=== PATIENT | female | born 1995 | race Caucasian/White ===

== ENCOUNTER 2017-07-20 08:50 | Outpatient (CLI) | payer BC ==
[2017-07-20 09:03] VITALS: BP 116/58
== END 2017-07-20 12:25 | disposition home or self-care (01) ==
LOC: LDOP 08:50
PROVIDERS: ATTEND Student in an Organized Health Care Education/Training Program
DX: O26.893 Other specified pregnancy related conditions, third trimester (principal); O62.9 Abnormality of forces of labor, unspecified; R10.9 Unspecified abdominal pain; Z3A.39 39 weeks gestation of pregnancy
CPT/HCPCS: 59025; 99211; G0463

== ENCOUNTER 2017-07-20 19:40 | Inpatient (IN) | payer BC ==
[~2017-07-20] VITALS: Ht 162.6 cm; Wt 98.0 kg
[2017-07-20] MEDS ORDERED: LACTATED RINGERS 1,000 ML IV SCH (20:10)
[2017-07-20] MEDS ORDERED: OXYTOCIN 30U/ 0.9% NaCL 500ML 500 ML IV ONE (20:10)
[2017-07-20] MEDS ORDERED: D5%-LACTATED RINGERS 1,000 ML IV SCH (20:10)
[2017-07-20] MEDS ORDERED: NEWBORN KIT ONE (20:25)
[2017-07-20] MEDS ORDERED: OXYTOCIN 30U/ 0.9% NaCL 500ML 500 ML ONE (20:25)
[2017-07-20] MEDS ORDERED: MISOPROSTOL 200 MCG TABLET ONE (20:26)
[2017-07-20] MEDS ORDERED: LIDOCAINE 1%, 20ML ONE (20:26)
[2017-07-20] MEDS ORDERED: ONDANSETRON 2MG/ML, 2ML IVPush PRN (20:30)
[2017-07-20] MEDS ORDERED: CALCIUM CARBONATE 500 MG TAB.CHEW PO PRN (20:30)
[2017-07-20] MEDS ORDERED: FENTANYL PF 100 MCG/2ML IV PRN (20:30)
[2017-07-20] MEDS: PLEASE ENTER HEIGHT AND WEIGHT MC SCH (20:30)
[2017-07-20] MEDS ORDERED: TERBUTALINE 1 MG/ML, 1ML IVPush PRN (20:30)
[2017-07-20] MEDS ORDERED: FENTANYL PF 100 MCG/2ML ONE ×2 (20:30→22:54)
[2017-07-20] MEDS: FENTANYL PF 100 MCG/2ML IVPush PRN ×2 (20:31→22:56)
[2017-07-20 20:41] LABS: HEMATOCRIT 30.7 % (34.6-47.8); WHITE BLOOD COUNT 6.5 x10^3/uL (4.5-13.2)
[2017-07-21] MEDS ORDERED: FENTANYL PF 100 MCG/2ML ONE ×2 (00:10→02:22)
[2017-07-21] MEDS: FENTANYL PF 100 MCG/2ML IVPush PRN ×2 (00:13→02:24)
[2017-07-21] MEDS ORDERED: OXYTOCIN 30U/ 0.9% NaCL 500ML 500 ML ONE (02:22)
[2017-07-21] MEDS ORDERED: ONDANSETRON 2MG/ML, 2ML IV PRN (03:00)
[2017-07-21] MEDS ORDERED: HYDROcodone/APAP 10/325 MG TABLET PO PRN (03:00)
[2017-07-21] MEDS ORDERED: MISOPROSTOL 200 MCG TABLET PR PRN (03:00)
[2017-07-21] MEDS ORDERED: BISACODYL 10 MG SUPP PR PRN (03:00)
[2017-07-21] MEDS ORDERED: CARBOPROST TROMETHAMINE 250 MCG/ML, 1ML IM PRN (03:00)
[2017-07-21] MEDS ORDERED: METHYLERGONOVINE 0.2 MG/ML IM PRN (03:00)
[2017-07-21] MEDS ORDERED: ACETAMINOPHEN 325 MG TABLET PO PRN ×2 (03:00)
[2017-07-21] MEDS ORDERED: CALCIUM CARBONATE 500 MG TAB.CHEW PO PRN (03:00)
[2017-07-21] MEDS ORDERED: MAGNESIUM HYDROXIDE 8%, 30ML UDC PO PRN (03:00)
[2017-07-21] MEDS ORDERED: METOCLOPRAMIDE 5 MG/ML, 2ML IV PRN (03:00)
[2017-07-21] MEDS ORDERED: MEASLES,MUMPS&RUBELLA VACC/PF 0.5 ML SQ PRN (03:00)
[2017-07-21] MEDS ORDERED: GLYCERIN ADULT SUPP PR PRN (03:00)
[2017-07-21] MEDS ORDERED: DIPH,PERTUSS(ACELL),TET VAC/PF NC IM-VACC PRN (03:00)
[2017-07-21] MEDS ORDERED: RHOGAM FROM BLOOD BANK 1 NOTE EA IM/IV ONE (03:00)
[2017-07-21] MEDS: OXYTOCIN 30U/ 0.9% NaCL 500ML 500 ML IV SCH ×3 (03:10→22:59)
[2017-07-21] MEDS: LACTATED RINGERS 1,000 ML IV SCH ×3 (03:12→23:30)
[2017-07-21] MEDS ORDERED: OXYcodone/APAP 5/325MG TABLET ONE (03:33)
[2017-07-21] MEDS ORDERED: IBUPROFEN 600 MG TABLET ONE (03:33)
[2017-07-21] MEDS: IBUPROFEN 600 MG TABLET PO PRN ×2 (03:35→20:06)
[2017-07-21] MEDS ORDERED: HYDROcodone/APAP 5/325 TABLET ONE (03:48)
[2017-07-21] MEDS: HYDROcodone/APAP 5/325 TABLET PO PRN ×3 (03:51→20:06)
[2017-07-21] MEDS: PLEASE ENTER HEIGHT AND WEIGHT MC SCH ×3 (04:30→20:30)
[2017-07-21 04:45] VITALS: BP 129/83
[2017-07-21 07:40] VITALS: BP 109/60
[2017-07-21] MEDS: PRENATAL VIT/IRON/FA 1 EACH TABLET PO SCH (08:53)
[2017-07-21 10:55] LABS: HEMATOCRIT 29.3 % (34.6-47.8); HEMOGLOBIN 9.9 g/dL (11.7-16.4); WHITE BLOOD COUNT 9.6 x10^3/uL (4.5-13.2)
[2017-07-21 12:00] VITALS: BP 112/73
[2017-07-21 16:00] VITALS: BP 118/72
[2017-07-21] MEDS: DOCUSATE 100 MG CAPSULE PO PRN (20:06)
[2017-07-21 20:10] VITALS: BP 115/74
[2017-07-22] MEDS: IBUPROFEN 600 MG TABLET PO PRN ×4 (02:12→22:40)
[2017-07-22] MEDS: HYDROcodone/APAP 5/325 TABLET PO PRN ×4 (02:12→22:40)
[2017-07-22] MEDS: PLEASE ENTER HEIGHT AND WEIGHT MC SCH ×2 (04:30→12:30)
[2017-07-22 07:10] VITALS: BP 116/67
[2017-07-22] MEDS: OXYTOCIN 30U/ 0.9% NaCL 500ML 500 ML IV SCH ×2 (08:59→18:59)
[2017-07-22] MEDS ORDERED: IBUP-1222 PO (09:25)
[2017-07-22] MEDS ORDERED: HYDR-3240 PO (09:25)
[2017-07-22] MEDS: LACTATED RINGERS 1,000 ML IV SCH ×2 (09:30→19:30)
[2017-07-22] MEDS: PRENATAL VIT/IRON/FA 1 EACH TABLET PO SCH (09:34)
[2017-07-22] MEDS: DOCUSATE 100 MG CAPSULE PO PRN ×2 (09:34→22:40)
[2017-07-22] MEDS ORDERED: ACETAMINOPHEN 325 MG TABLET PO PRN ×2 (14:30)
[2017-07-22] MEDS ORDERED: ONDANSETRON 2MG/ML, 2ML IV PRN (14:30)
[2017-07-22] MEDS ORDERED: GLYCERIN ADULT SUPP PR PRN (14:30)
[2017-07-22] MEDS ORDERED: CALCIUM CARBONATE 500 MG TAB.CHEW PO PRN (14:30)
[2017-07-22] MEDS ORDERED: BISACODYL 10 MG SUPP PR PRN (14:30)
[2017-07-22] MEDS ORDERED: METOCLOPRAMIDE 5 MG/ML, 2ML IV PRN (14:30)
[2017-07-22 20:35] VITALS: BP 121/79
[2017-07-23] MEDS: OXYTOCIN 30U/ 0.9% NaCL 500ML 500 ML IV SCH (04:59)
[2017-07-23] MEDS: LACTATED RINGERS 1,000 ML IV SCH (05:30)
[2017-07-23 07:40] VITALS: BP 113/66
[2017-07-23] MEDS: IBUPROFEN 600 MG TABLET PO PRN ×2 (07:42→15:54)
[2017-07-23] MEDS: HYDROcodone/APAP 5/325 TABLET PO PRN ×2 (07:42→15:54)
[2017-07-23] MEDS: DOCUSATE 100 MG CAPSULE PO PRN (07:42)
[2017-07-23] MEDS ORDERED: PRENATAL VIT/IRON/FA 1 EACH TABLET PO SCH (09:00)
== END 2017-07-23 18:35 | disposition home or self-care (01) | DRG 774 ==
LOC: LDOP 19:40 → LDIP 20:11 → 2NW 07-21 04:25
PROVIDERS: ADMIT Student in an Organized Health Care Education/Training Program; ATTEND Student in an Organized Health Care Education/Training Program
PROC: 10E0XZZ Delivery of Products of Conception, External Approach (ICD-10-PCS; principal; 2017-07-21)
PROC: 0HQ9XZZ Repair Perineum Skin, External Approach (ICD-10-PCS; 2017-07-21)
DX: O62.3 Precipitate labor (principal); O98.52 Other viral diseases complicating childbirth; A92.5 Zika virus disease; O70.0 First degree perineal laceration during delivery; O71.82 Other specified trauma to perineum and vulva; O99.314 Alcohol use complicating childbirth; Q86.0 Fetal alcohol syndrome (dysmorphic); Z37.0 Single live birth; Z3A.39 39 weeks gestation of pregnancy; Z90.49 Acquired absence of other specified parts of digestive tract; Z72.89 Other problems related to lifestyle
CPT/HCPCS: 36415; 85025; 86850; 86900; 88305; J3010; J2590; J7120